=== PATIENT | male | born 1960 | race Caucasian/White ===

== ENCOUNTER 2016-06-22 08:55 | Outpatient (CLI) ==
[2016-06-22 09:56] LABS: ALBUMIN 3.9 g/dL (3.4-5.0); ALBUMIN/GLOBULIN RATIO 1.34; ANION GAP 12.1; BILIRUBIN,TOTAL 0.58 mg/dL (0.00-1.20); BUN/CREATININE RATIO 16.1; CALCIUM 9.7 mg/dL (8.2-10.2); CHOL/HDL RATIO 3.5 (4.5-6.4); CREATININE 1.18 mg/dL (0.60-1.10); POTASSIUM 4.1 mmol/L (3.5-5.1); TOTAL PROTEIN 6.8 g/dL (6.4-8.2)
== END 2016-06-22 08:56 | disposition home or self-care (01) ==
LOC: LAB 08:55
PROVIDERS: ATTEND Internal Medicine Endocrinology, Diabetes & Metabolism
DX: E10.9 Type 1 diabetes mellitus without complications (principal); R53.83 Other fatigue; G62.9 Polyneuropathy, unspecified
CPT/HCPCS: 36415; 80053; 80061; 82607; 83036; 84439; 84443

== ENCOUNTER 2016-07-25 06:53 | Inpatient (IN) ==
[~2016-07-25 06:53] MED LIST: ZITHROMAX 500 MG in SODIUM CHLORIDE 250 ML IV SCH
[2016-07-25] MEDS ORDERED: SODIUM CHLORIDE 1,000 ML IV STA (07:27)
[2016-07-25 07:43] LABS: BILIRUBIN,URINE Negative (NEGATIVE); KETONES,URINE Trace (NEGATIVE); LEUKOCYTE ESTERASE ,URINE Negative (NEGATIVE); NITRITE,URINE Negative (NEGATIVE); PH,URINE 5.5 (5-9); PROTEIN,URINE 2+ (NEGATIVE); URINE, BLOOD 2+ (NEGATIVE)
[2016-07-25 07:47] LABS: ADD URINE MICROSCOPIC YES
[2016-07-25 07:54] LABS: FLU INTERNAL QC INTERNAL QC VALID; RAPID FLU A NEGATIVE (NEGATIVE); RAPID FLU B NEGATIVE (NEGATIVE)
[2016-07-25 07:55] LABS: BASOPHILS # (AUTO) 0.1 K/uL (0-0.2); BASOPHILS % (AUTO) 0.2 % (0.0-3.0); HEMATOCRIT 44.1 % (42.0-52.0); HEMOGLOBIN 15.2 g/dl (14.0-18.0); IMMATURE GRANULOCYTE % (AUTO) 0.7 % (0.0-5.0); LYMPHOCYTES # (AUTO) 0.4 K/uL (0.60-3.4); MEAN CORPUSCULAR HEMOGLOBIN 30.8 pg (27.0-31.0); MEAN CORPUSCULAR HGB CONC 34.5 (31.8-35.4); MEAN CORPUSCULAR VOLUME 89.3 fl (80.0-94.0); MONOCYTES # (AUTO) 1.1 K/uL (0.4-2.0); MONOCYTES % (AUTO) 5.4 (0-10); NEUTROPHILS # (AUTO) 18.5 K/ul (2.0-6.9); NEUTROPHILS % (AUTO) 91.7; PLATELET COUNT 289 10^3/uL (140-440); RED BLOOD COUNT 4.94 10^6/ul (4.70-6.10); WHITE BLOOD COUNT 20.14 K/ul (4.2-10.2)
--- NOTE | 2016-07-25 08:25 | DI ---
Examination: Three radiographic images of the chest. Comparison: 07/05/2009. Reason for study: Cough. FINDINGS: The lungs are hyperexpanded. The cardiac silhouette is unchanged and within normal limit s of size. Chronic parenchymal changes are seen throughout the lung parenchyma. There is a develop ing air space opacity in the right lower lobe. No obvious pneumothorax. Impression: 1. Developing air space opacity/consolidation in the right lower lobe consistent with pneumonia. 2. Chronic obstructive pulmonary disease
[2016-07-25 08:32] LABS: ALANINE AMINOTRANSFERASE 15 U/L (12-78); ALBUMIN 3.1 g/dL (3.4-5.0); ALBUMIN/GLOBULIN RATIO 0.69; ALKALINE PHOSPHATASE 88 U/L (50-136); ANION GAP 16.8; ASPARTATE AMINO TRANSFERASE 14 U/L (15-37); BILIRUBIN,TOTAL 0.59 mg/dL (0.00-1.20); BLOOD UREA NITROGEN 15 mg/dL (7-18); BUN/CREATININE RATIO 11.45; CALCIUM 9.6 mg/dL (8.2-10.2); CARBON DIOXIDE 26 mmol/L (21-32); CHLORIDE 91 mmol/L (98-107); CREATINE KINASE 183 U/L; CREATININE 1.31 mg/dL (0.60-1.10); GLUCOSE 319 mg/dL (70-100); POTASSIUM 3.8 mmol/L (3.5-5.1); SODIUM 130 mmol/L (136-145); TOTAL PROTEIN 7.6 g/dL (6.4-8.2)
[2016-07-25] MEDS ORDERED: ROCEPHIN 1 GM in SODIUM CHLORIDE 50 ML IV STA (08:47)
[2016-07-25] MEDS ORDERED: ROCEPHIN ONE (08:50)
--- NOTE | 2016-07-25 11:22 | CT ---
EXAM: CT ABDOMEN AND PELVIS HISTORY: High white cell count, abdominal pain TECHNIQUE: CT abdomen and pelvis with intravenous contrast. Images were reconstructed using 5 mm se ction thickness. Reformations were prepared. 100 ml Visipaque 320 FINDINGS: No comparison CT. Paucity of intraperitoneal fat and patient motion limits the evaluation. No focal hepatic or spleni c lesions identified. Gallbladder grossly within normal limits. The pancreas is grossly within nor mal limits. No hydronephrosis. Anterior midpole left kidney demonstrates a 1 cm probable cyst. Ot herwise unremarkable enhancement of the renal parenchyma. The ureters are poorly seen. Normal abdo noam aorta. No gastric distension. What may represent a few portions of the appendix appear normal. Mild diffu se fluid distension of the small bowel. Urinary bladder is grossly unremarkable. Mildly prominent prostate size. There may be a scant amount of pelvic ascites. No abdominal wall hernia. Bones reveal degenerative disc and facet disease of the lumbosacral junct ion. Lung bases demonstrate a moderate amount of consolidation posteriorly on the right. No pneumo peritoneum. IMPRESSION: 1. Moderate right lung base pneumonia. 2. Mild fluid distension of most of the small bowel and possible scant pelvic ascites. Consider en teritis or ileus. 3. Mild prostate enlargement.
--- NOTE | 2016-07-25 12:02 | ED.PDOC ---
General ED Provider: Dr. SCOTT DODSON Chief Complaint: Fever Stated Complaint: fever Time Seen by Physician: 07:00 Mode of Arrival: Walk-In Information Source: Patient Exam Limitations: No limitations Nursing and Triage Documentation Reviewed and Agree: Yes Miscellaneous Complaint Exam - Febrile Illness/Adult Complaint/Exam Onset/Duration: 2 days Symptoms Are: Still present Timing: Constant Episodes Lasting: Hours Initial Severity: Moderate Current Severity: Moderate Associated Signs and Symptoms: Reports: Cough, Sore throat, Nausea, Chills, Myalgia Pseudomonas Risk Factors: Reports: None Serious Bacterial Infection Risk Factors: Reports: None Current Antibiotic Use: No Related Surgical History: None Differential Diagnoses: Bacteremia, GI Disease, Pneumonia Quality Indicator For Non-Traumatic Chest Pain/Syncope: EKG Performed Review of Systems - Review Of Systems Constitutional: Reports: Chills, Fever, Malaise Eyes: Reports: No symptoms Ears, Nose, Mouth, Throat: Reports: No symptoms Respiratory: Reports: Cough Cardiac: Reports: No symptoms GI: Reports: Abdominal pain : Reports: No symptoms Musculoskeletal: Reports: No symptoms Skin: Reports: No symptoms Neurological: Reports: No symptoms Endocrine: Reports: No symptoms Hematologic/Lymphatic: Reports: No symptoms All Other Systems: Reviewed and Negative Past Medical History - Past Medical History Previously Healthy: No Endocrine: Reports: DM 1 Cardiovascular: Reports: None Respiratory: Reports: COPD Hematological: Reports: None Gastrointestinal: Reports: None Genitourinary: Reports: None Neuro/Psych: Reports: None Musculoskeletal: Reports: None Cancer: Reports: None - Surgical History General Surgical History: Reports: None - Family History Family History: Reports: None - Social History Smoking Status: Current every day smoker, Heavy tobacco smoker Hx Substance Use: No Alcohol Screening: None Physical Exam - Physical Exam Appearance: Ill-appearing Eyes: BLAISE, EOMI, Conjunctiva clear ENT: Ears normal, Nose normal, Oropharynx normal Respiratory: Rhonchi Cardiovascular: RRR, Pulses normal, No rub, No murmur GI/: Soft, Nontender, No masses, Bowel sounds normal, No Organomegaly Musculoskeletal: Normal strength, ROM intact, No edema, No calf tenderness Skin: Warm, Dry, Normal color Neurological: Sensation intact, Motor intact, Reflexes intact, Cranial nerves intact, Alert, Oriented Psychiatric: Affect appropriate, Mood appropriate Interpretation - Radiology Interpretation Radiology Interpretation By: Radiologist Radiology Results: Positive (pneumonia) Physician Notification - Case Discussed Physician Notified: [email or web address] Time of Notification: 12:03 Admit To: Inpatient Critical Care Note - Critical Care Note Total Time (mins): 0 Course - Course Hematology/Chemistry: 07/25/16 07:45 07/25/16 07:45 Orders, Labs, Meds: Lab Review 07/25/16 07/25/16 07:15 07:45 WBC 20.14 H RBC 4.94 Hgb 15.2 Hct 44.1 MCV 89.3 MCH 30.8 MCHC 34.5 RDW Coeff of Kimber 12.2 Plt Count 289 Immature Gran % (Auto) 0.7 Neut % (Auto) 91.7 Lymph % (Auto) 2.0 L [place] % (Auto) 5.4 Eos % (Auto) 0.0 Baso % (Auto) 0.2 Immature Gran # (Auto) 0.1 Neut # 18.5 H Lymph # 0.4 L [place] # 1.1 Eos # 0.0 Baso # 0.1 Sodium 130 L Potassium 3.8 Chloride 91 L Carbon Dioxide 26 Anion Gap 16.8 BUN 15 Creatinine 1.31 H Estimated GFR (MDRD) 57.00 BUN/Creatinine Ratio 11.45 Glucose 319 H Lactic Acid 19.9 H Calcium 9.6 Total Bilirubin 0.59 AST 14 L ALT 15 Alkaline Phosphatase 88 Total Creatine Kinase 183 CK-MB (CK-2) 1.0 CK-MB (CK-2) % 0.26465 Troponin I < 0.0100 Total Protein 7.6 Albumin 3.1 L Globulin 4.5 Albumin/Globulin Ratio 0.69 Urine Color Yellow Urine Clarity Clear Urine pH 5.5 Ur Specific [place] 1.015 Urine Protein 2+ Urine Glucose (UA) 2+ Urine Ketones Trace Urine Blood 2+ Urine Nitrite Negative Urine Bilirubin Negative Urine Urobilinogen 1.0 Ur Leukocyte Esterase Negative Urine Microscopic RBC 0-2 Urine Microscopic WBC 0-2 Ur Squamous Epith Cells 0-2 Influenza A (Rapid) Negative Influenza B (Rapid) Negative Orders Category Date Time Status EKG-(ED ONLY) Stat CARDIO 07/25/16 08:47 Completed NPO REMINDER: IMAGING ONCE CARE 07/25/16 08:47 Completed ED IV/MEDIPORT/POWERPORT .ONCE EMERGENCY 07/25/16 07:26 Active BLOOD CULTURE Stat LAB 07/25/16 07:45 Received CBC W/ AUTO DIFF Stat LAB 07/25/16 07:45 Completed COMPREHENSIVE METABOLIC PANEL Stat LAB 07/25/16 07:45 Completed CREATINE KINASE Stat LAB 07/25/16 07:45 Completed LACTIC ACID Stat LAB 07/25/16 07:45 Completed MOLECULAR GROUP A STREP Stat LAB 07/25/16 07:15 Results RAPID FLU A/B Stat LAB 07/25/16 07:15 Completed STREP SCREEN Stat LAB 07/25/16 07:15 Results TROPONIN I Stat LAB 07/25/16 07:45 Completed URINALYSIS C & S IF INDICATED Stat LAB 07/25/16 07:15 Completed 0.9 % Sodium Chloride [Saline Flush] MEDS 07/25/16 07:26 Active 1 syr IVF PRN PRN Ceftriaxone Sodium [Rocephin] MEDS 07/25/16 08:50 Discontinued 1 gm .ROUTE .STK-MED ONE Ceftriaxone Sodium [Rocephin] 1 gm MEDS 07/25/16 08:47 Discontinued 0.9 % Sodium Chloride [Sodium Chloride] 50 ml IV ONCE Sodium Chloride 0.9% [Sodium Chloride] 1,000 ml MEDS 07/25/16 07:27 Discontinued IV BOLUS CHEST, 2 VIEWS PA & LAT Stat RADS 07/25/16 07:[address] ABDOMEN/PELVIS W CONTRAST Stat RADS 07/25/16 08:46 Completed Medications Generic Name Dose Route Start Last Admin Trade Name Freq PRN Reason Stop Dose Admin Sodium Chloride 1 syr 07/25/16 07:26 07/25/16 07:44 Saline Flush IVF 1 syr PRN PRN Administration To flush IV Discontinued Medications Generic Name Dose Route Start Last Admin Trade Name Freq PRN Reason Stop Dose Admin Sodium Chloride 1,000 mls @ 1,000 mls/hr 07/25/16 07:27 07/25/16 07:44 Sodium Chloride IV 07/25/16 08:26 1,000 mls/hr BOLUS STA Administration Ceftriaxone Sodium 1 gm/ 50 mls @ 75 mls/hr 07/25/16 08:47 07/25/16 09:02 Sodium Chloride IV 07/25/16 09:26 75 mls/hr ONCE STA Administration Vital Signs: Temp Pulse Resp BP Pulse Ox 07/25/16 06:53 103.2 F H 101 H 20 141/76 H 93 L Departure - Departure Time of Disposition: 12:04 Disposition: ADMITTED INPATIENT Discharge Problem: Fever Pneumonia Qualifiers: Pneumonia type: due to unspecified organism Instructions: Bacterial Pneumonia (ED) Condition: Good Pt referred to PMD for follow-up: No Additional Instructions: Please call your Family Physician as soon as possible to schedule a follow-up appointment. Allergies/Adverse Reactions: Allergies ciprofloxacin [From Cipro] Adverse Reaction (Verified 07/25/16 07:03) Home Medications: Ambulatory Orders Albuterol Sulfate [Ventolin Hfa] 2 puff IH BID 07/25/16 Aspirin [Aspir-Low] 81 mg PO DAILY 07/25/16 Cyanocobalamin/Folic Acid [Vitamin M78-Gpsqf Acid Tablet] 1 each PO DAILY Gabapentin 300 mg PO TID 07/25/16 Guaifenesin [Mucinex] 600 mg PO DIRECTED PRN 07/25/16 Insulin Glargine,Hum.rec.anlog [Janie Santana] 1 unit SQ DIRECTED PRN 07/25 Insulin Lispro [Humalog Kwikpen] 34 unit SQ DAILY 07/25/16 Disposition Discussed With: Patient, Family
[2016-07-25 13:02] VITALS: BMI 21.1
[2016-07-25] MEDS ORDERED: SOLU-MEDROL 40 MG IVP STA (13:53)
[2016-07-25] MEDS: SODIUM CHLORIDE 1,000 ML IV SCH (14:00)
[2016-07-25] MEDS: NEURONTIN PO SCH ×2 (14:52→21:33)
[2016-07-25] MEDS: ZITHROMAX 500 MG in SODIUM CHLORIDE 250 ML IV SCH (15:19)
[2016-07-25] MEDS: DUONEB NEB SCH ×2 (17:13→22:49)
[2016-07-25 19:21] LABS: TROPONIN I 0.026 ng/ml (0.0000-0.4000)
[2016-07-25 19:22] LABS: CREATINE KINASE MB 0.9 ng/ml (0.0-3.6)
[2016-07-25] MEDS: HUMULIN R SUBCUT SCH (21:33)
[2016-07-25] MEDS: SOLU-MEDROL 40 MG IVP SCH (22:17)
[2016-07-26 02:18] LABS: BASOPHILS % (AUTO) 0.2 % (0.0-3.0); HEMOGLOBIN 12.5 g/dl (14.0-18.0); IMMATURE GRANULOCYTE % (AUTO) 0.9 % (0.0-5.0); LYMPHOCYTES # (AUTO) 0.4 K/uL (0.60-3.4); LYMPHOCYTES % (AUTO) 2.1 (10.0-50.0); MEAN CORPUSCULAR HEMOGLOBIN 30.9 pg (27.0-31.0); MEAN CORPUSCULAR HGB CONC 34.7 (31.8-35.4); MEAN CORPUSCULAR VOLUME 88.9 fl (80.0-94.0); MONOCYTES # (AUTO) 0.4 K/uL (0.4-2.0); MONOCYTES % (AUTO) 2.5 (0-10); NEUTROPHILS # (AUTO) 16.5 K/ul (2.0-6.9); NEUTROPHILS % (AUTO) 94.3; PLATELET COUNT 279 10^3/uL (140-440); RED BLOOD COUNT 4.05 10^6/ul (4.70-6.10); WHITE BLOOD COUNT 17.48 K/ul (4.2-10.2)
[2016-07-26 02:40] LABS: ALBUMIN 2.2 g/dL (3.4-5.0); ALBUMIN/GLOBULIN RATIO 0.67; ANION GAP 13.7; BILIRUBIN,TOTAL 0.35 mg/dL (0.00-1.20); BUN/CREATININE RATIO 16.5; CALCIUM 8.1 mg/dL (8.2-10.2); CREATININE 1.03 mg/dL (0.60-1.10); POTASSIUM 3.7 mmol/L (3.5-5.1); TOTAL PROTEIN 5.5 g/dL (6.4-8.2)
[2016-07-26 02:57] LABS: TROPONIN I 0.038 ng/ml (0.0000-0.4000)
[2016-07-26 02:58] LABS: CREATINE KINASE MB 0.9 ng/ml (0.0-3.6)
[2016-07-26] MEDS: SODIUM CHLORIDE 1,000 ML IV SCH ×3 (04:55→21:33)
[2016-07-26] MEDS: DUONEB NEB SCH ×4 (04:55→23:30)
[2016-07-26] MEDS: HUMULIN R SUBCUT SCH (05:24)
[2016-07-26] MEDS: SOLU-MEDROL 40 MG IVP SCH ×3 (05:42→20:30)
--- NOTE | 2016-07-26 07:19 | CT ---
EXAM: CT THORAX HISTORY: Shortness of breath, history of pneumothorax. TECHNIQUE: CT thorax with intravenous contrast. 5-mm axial sections. Coronal and sagittal re-forma tions. 75 ml Omnipaque COMPARISON: No comparison chest CT. Normal heart size. Thoracic aorta within normal limits. There are several prominent mediastinal an d hilar lymph nodes, many which are calcified. Lungs reveal severe emphysema including large apical bullae and moderate scattered fibrosis. Superi mposed moderate airspace consolidations in the right lower lobe posteriorly. There is a 0.79 cm stel late nodular opacity in the upper left lung with associated linear scarring. A similar stellate opa city is noted in the right upper lobe although slightly larger at 1.3 cm. These are likely fibrotic although neoplastic etiology cannot completely be excluded. Follow-up CT is recommended. Trace ri ght pleural effusion. No pneumothorax. The bones reveal no acute abnormality. Mild thoracic scoliosis. Incidental note of a few small gall stones. IMPRESSION: 1. Moderate right lung base pneumonia. 2. Severe emphysema with large biapical bullae and scattered fibrosis. 3. Indeterminate stellate nodular opacities in the upper lung zones as described, follow-up CT is r ecommended. 4. Prominent mediastinal lymph nodes may be related to previous granulomatous disease/reactive post inflammatory. Malignant nature, less likely although not excluded.
[2016-07-26] MEDS: ASPIRIN EC PO SCH (08:31)
[2016-07-26] MEDS: ROCEPHIN 1 GM in SODIUM CHLORIDE 100 ML IV SCH (08:31)
[2016-07-26] MEDS: NEURONTIN PO SCH ×3 (08:31→20:48)
[2016-07-26] MEDS: ZITHROMAX 500 MG in SODIUM CHLORIDE 250 ML IV SCH (09:44)
[2016-07-26] MEDS ORDERED: HUMULIN R SUBCUT STA (11:24)
[2016-07-26 12:17] LABS: HEMATOCRIT 34.1 % (42.0-52.0); HEMOGLOBIN 12.2 g/dl (14.0-18.0)
[2016-07-26] MEDS ORDERED: HUMULIN R SUBCUT ONE ×2 (12:30→12:58)
[2016-07-26] MEDS: HUMULIN R SUBCUT PRN ×2 (16:58→20:47)
[2016-07-27] MEDS: DUONEB NEB SCH ×4 (04:53→23:10)
[2016-07-27] MEDS: SOLU-MEDROL 40 MG IVP SCH ×3 (05:40→20:19)
[2016-07-27 06:03] LABS: BASOPHILS % (AUTO) 0.1 % (0.0-3.0); HEMATOCRIT 32.9 % (42.0-52.0); HEMOGLOBIN 11.6 g/dl (14.0-18.0); IMMATURE GRANULOCYTE % (AUTO) 0.4 % (0.0-5.0); LYMPHOCYTES # (AUTO) 0.5 K/uL (0.60-3.4); LYMPHOCYTES % (AUTO) 3.1 (10.0-50.0); MEAN CORPUSCULAR HEMOGLOBIN 30.9 pg (27.0-31.0); MEAN CORPUSCULAR HGB CONC 35.3 (31.8-35.4); MEAN CORPUSCULAR VOLUME 87.5 fl (80.0-94.0); MONOCYTES # (AUTO) 0.6 K/uL (0.4-2.0); MONOCYTES % (AUTO) 3.4 (0-10); NEUTROPHILS # (AUTO) 15.8 K/ul (2.0-6.9); PLATELET COUNT 313 10^3/uL (140-440); RED BLOOD COUNT 3.76 10^6/ul (4.70-6.10); WHITE BLOOD COUNT 16.94 K/ul (4.2-10.2)
[2016-07-27 06:27] LABS: ALBUMIN 2.1 g/dL (3.4-5.0); ALBUMIN/GLOBULIN RATIO 0.68; ANION GAP 11.1; BILIRUBIN,TOTAL 0.25 mg/dL (0.00-1.20); BUN/CREATININE RATIO 23.07; CALCIUM 8.2 mg/dL (8.2-10.2); CREATININE 0.91 mg/dL (0.60-1.10); POTASSIUM 4.1 mmol/L (3.5-5.1); TOTAL PROTEIN 5.2 g/dL (6.4-8.2)
[2016-07-27] MEDS: HUMULIN R SUBCUT PRN ×4 (06:42→20:37)
[2016-07-27] MEDS: ASPIRIN EC PO SCH (08:50)
[2016-07-27] MEDS: NEURONTIN PO SCH ×3 (09:18→20:18)
[2016-07-27] MEDS: INSULIN GLARGINE HUM REC ANLOG 34 UNIT SUBCUT SCH (09:19)
[2016-07-27] MEDS: ROCEPHIN 1 GM in SODIUM CHLORIDE 100 ML IV SCH (09:20)
--- NOTE | 2016-07-27 10:27 | HP ---
DATE OF SERVICE: 07/25/16 REASON FOR HOSPITALIZATION: Fever HISTORY OF PRESENT ILLNESS: The patient is a 56 year old male who is very active with a history of diabetes , coughing, congestion and getting yellow green phlegm for 3-4 days and a fever of 101 and 102. He has been taking over the counter medication and not helping so came to the emergency room today and seen by Dr. Shea. Temperature in the emergency room was 103.2. Saturation was 93% on the room air. Chest x-ray showed the right lower lobe pneumonia. Co-worker been diagnosed with the flu. WBC was 20.14, lactic acid is 19.3, glucose 319. In review of right lower lobe pneumonia, community acquired and fever of 103 the patient is admitted to the hospital for IV antibiotics and rehydration. REVIEW OF SYSTEMS: CONSTITUTIONAL: No night sweats. Weakness and tiredness. Fever. HEENT: Eyes: No visual changes. No eye pain. No eye discharge. ENT: No runny nose. No epistaxis. No sinus pain. No sore throat. No odynophagia. No ear pain. No congestion. RESPIRATORY: Coughing, congestion. No hemoptysis. CARDIOVASCULAR: No angina symptoms. No CHF symptoms. No atypical chest pain for CAD. No palpitations. Shortness of breath. GASTROINTESTINAL: No abdominal pain. No nausea or vomiting. No diarrhea or constipation. No hematemesis. No hematochezia. GENITOURINARY: No urgency. No frequency. No dysuria. No hematuria. No obstructive symptoms. No discharge. No pain. No significant abnormal bleeding. MUSCULOSKELETAL: No musculoskeletal pain. No joint swelling. No arthritis. NEUROLOGICAL: No headache. No neck pain. No syncope. No seizures. No dizziness. PSYCHIATRIC: Not anxious. No depression. No suicidal thoughts. No homicidal thoughts. SKIN: No rash. No lesions. No wounds. ENDOCRINE: No unexplained weight loss. No weight gain. Elevated sugars. HEMATOLOGIC/LYMPHATIC: No anemia. No purpura. No petechiae. No prolonged or excessive bleeding. No palpable lymph nodes. PERSONAL/FAMILY/SOCIAL HISTORY: The patient does smoke. No alcohol and no drug use. 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 Family history is significant for the thyroid and cardiac problems. PAST MEDICAL/SURGICAL PROBLEMS: Diabetes COPD Depression Anxiety History of pneumothorax X2 Hernia repair on the left side MEDICATIONS: DUO NEB Insulin Neurontin Mucinex Ventolin Humalog Vitamin B12 [place] ALLERGIES: Ciprofloxacin PHYSICAL EXAMINATION: VITAL SIGNS: Blood pressure 140/76, respiratory rate 20, heart rate 101, temperature 103.2 and pulse ox 93%. HEENT: Head normocephalic, atraumatic. Eyes: Extraocular muscles are intact. Pupils are equal, round and reactive to light and accommodation. Ears: No lesions. Nose appeared normal. Throat: No exudate or erythema. Mucosa dry. NECK: Supple. No JVD, no carotid bruit. No lymphadenopathy or thyromegaly. LUNGS:Decreased and basilar crackles right more than the left. Percussion note normal. Chest symmetrical. HEART: S1, S2, no S3. No murmurs. No cyanosis or clubbing. No ascites. Pulses: Dorsalis pedis and posterior tibial pulses +1 to +2 both sides. ABDOMEN: Soft. Nontender. Bowel sounds sluggish. No CVA tenderness. No mass felt. EXTREMITIES: No edema. Full range of motion of all extremities, equal. NEUROLOGIC: No focal deficit. Cranial nerves II through XII are grossly intact. No headache, no double vision or headache. SKIN: Dry. Intact. Turgor - normal. No open areas. LYMPHATIC: No palpable lymph nodes/no lymphedema. MUSCULOSKELETAL: Normal joints with no swelling. Muscle tone is normal. LABS: WBC 20.14, hgb 15.2, hct 44.1, plt count 289, sodium 130, potassium 3.8, chloride 99. bicarb 26, BUN 15, creatinine 1.31, glucose 319 and lactic acid 19.9. Urine 2+ protein, 2+ glucose and blood 2+. Influenza negative. CT of abdomen and pelvis showed the right lower lobe pneumonia. ASSESSMENT: 1. Community acquired pneumonia, right lower lobe 2. Uncontrolled diabetes mellitus 3. COPD 4. Nicotine use 5. Hypertension 6. Peripheral neuropathy PLAN: 1. Admit patient to the regular floor 2. CBC and CMP today and daily 3. Cardiac enzymes and Troponin 4. IV fluids 75ml per hour 5. Rocephin 1 gram daily 6. Accu-checks with the coverage 7. DUO NEBS 8. Solu-Medrol 40 Q 8 hours 9. Tylenol for the fever Will follow the patient in daily rounds. TIME SPENT: More than 60 minutes. MTDD
[2016-07-27] MEDS: ZITHROMAX 500 MG in SODIUM CHLORIDE 250 ML IV SCH (10:35)
[2016-07-27] MEDS: SODIUM CHLORIDE 1,000 ML IV SCH (11:19)
[2016-07-27 12:24] LABS: HEMATOCRIT 34.5 % (42.0-52.0); HEMOGLOBIN 12.1 g/dl (14.0-18.0)
--- NOTE | 2016-07-27 13:15 | PN ---
DATE OF SERVICE: 07/27/16 SUBJECTIVE: The patient is complaining about coughing and getting drops of blood. His hgb dropped from 15.2 to 11.6 today. Otherwise PND or Orthopnea. REVIEW OF SYSTEMS: CONSTITUTIONAL: No fever, no chills. HEENT: Normal. ENDOCRINE: No weight gain, no weight loss. CVS: No angina symptoms. No CHF symptoms. No palpitations. No atypical chest pain for CAD. No shortness of breath. No PND, no orthopnea. RESPIRATORY: Still coughing has a lot of yellow/green phlegm. No hemoptysis. GI: No nausea, no vomiting. No abdominal pain. : No hematuria. No polyuria. MUSCULOSKELETAL:. No joint swelling. PSYCHIATRIC: Not anxious. No depression. No suicidal thoughts. No homicidal thoughts. SKIN: Intact. No rash. PHYSICAL EXAMINATION: V/S: Blood pressure 111/64, respiratory rate 16, heart rate 70, temperature 96.9 and saturation is 90. HEENT: Normocephalic, atraumatic. Ears, eyes, nose and throat normal. Mucosa dry. Pallor positive. NECK: Supple. No JVD, no carotid bruit. No lymphadenopathy. LUNGS: Decreased and basilar crackles. No rales or rhonchi. HEART: S1, S2 normal. No S3. No murmur, gallop or regurgitation. ABDOMEN: Soft, nontender. Bowel sounds active. No rigidity. No rebound or guarding. No CVA tenderness. EXTREMITIES: No clubbing, cyanosis or pedal edema. MUSCULOSKELETAL: No joint swelling. NEUROLOGIC: Awake, alert, oriented times three. No focal deficit. LYMPHATIC: No lymph nodes palpable. SKIN: Intact. LABS: WBC 16.49, hgb 11.6, hct 32.9, plt count 313, d-dimer 1.17, sodium 128, potassium 4.1, chloride 99, bibcarb 22, BUN 21 and creatinine 0.91. ASSESSMENT: 1. Hemoptysis 2. COPD exacerbation secondary to the pneumonia right lower lobe 3. Anemia 4. Depression 5. Anxiety 6. Diabetes Mellitus PLAN: 1. Continue Rocephin 2. Insulin 3. DUO NEBS 4. Solu-Medrol 40 Q 8 hour 5. IV fluids 6. Will give Tessalon Perles 200 three times a day 7. Out of bed to chair activity as tolerated Will follow the patient in daily rounds. TIME SPENT: More than 30 minutes MTDD
--- NOTE | 2016-07-27 14:13 | PN ---
DATE OF SERVICE: 07/26/16 SUBJECTIVE: The patient was admitted with the pneumonia right lower lobe, community acquired. The patient had fever 101,100.8 and 100.6 all night. The last one was 97 as of now resting in the bed and not in any distress. REVIEW OF SYSTEMS: CONSTITUTIONAL: No fever, no chills. HEENT: Normal. ENDOCRINE: No weight gain, no weight loss. CVS: No angina symptoms. No CHF symptoms. No palpitations. No atypical chest pain for CAD. No shortness of breath. No PND, no orthopnea. RESPIRATORY: Cough and congestion and getting lots of phlegm. No hemoptysis. GI: No nausea, no vomiting. No abdominal pain. : No hematuria. No polyuria. MUSCULOSKELETAL:. No joint swelling. PSYCHIATRIC: Not anxious. No depression. No suicidal thoughts. No homicidal thoughts. SKIN: Intact. No rash. PHYSICAL EXAMINATION: V/S: Blood pressure 103/78, respiratory rate 18, 16, heart 84 and temperature 98.1. HEENT: Normocephalic, atraumatic. Ears, eyes, nose and throat normal. Mucosa dry. Pallor positive. No icterus. NECK: Supple. No JVD, no carotid bruit. No lymphadenopathy. LUNGS: Decreased and basilar crackles right more than the left. No rales or rhonchi. HEART: S1, S2 normal. No S3. No murmur, gallop or regurgitation. ABDOMEN: Soft, nontender. Bowel sounds active. No rigidity. No rebound or guarding. No CVA tenderness. EXTREMITIES: No clubbing, cyanosis or pedal edema. MUSCULOSKELETAL: No joint swelling. NEUROLOGIC: Awake, alert, oriented times three. No focal deficit. LYMPHATIC: No lymph nodes palpable. SKIN: Intact. LABS: WBC 17.48, hgb 12.5, hct 36.0, plt count 279, sodium 129, potassium 3.7, chloride 97, bicarb 22, BUN 17 and creatinine 1.03 ASSESSMENT: 1. COPD exacerbation secondary to the right lower lobe pneumonia 2. Persistent fever secondary to the pneumonia, rule out other systemic infections 3. History of Hypothyroidism 4. Depression 5. Diabetes PLAN: 1. Continue the Rocephin 2. Azithromycin 3. CT of the chest, results to be followed 4. Continue IV fluids 5. Tylenol 6. Follow up with the followup with the blood cultures Will follow the patient in daily rounds. TIME SPENT: More than 30 minutes MTDD
[2016-07-27] MEDS: TESSALON PERLES PO SCH ×2 (14:58→20:18)
--- NOTE | 2016-07-27 16:02 | DI ---
EXAM: Two views of the chest. History: Follow-up pneumonia Comparison: Chest radiograph 07/25/2016, chest CT 07/26/2016 Findings: Severe emphysema with bullous changes in the lung apices. Heart size is normal. No signi ficant interval change in the right lower lobe consolidation and small right pleural effusion. No v isible pneumothorax. No acute osseous abnormalities. Impression: 1. No significant interval change in the right lower lobe pneumonia. Continued follow-up recommende d 2. Severe emphysema.
[2016-07-28] MEDS: SODIUM CHLORIDE 1,000 ML IV SCH (02:04)
[2016-07-28 02:43] VITALS: TEMP 97.6
[2016-07-28] MEDS: SOLU-MEDROL 40 MG IVP SCH (04:57)
[2016-07-28] MEDS: DUONEB NEB SCH ×2 (05:05→11:04)
[2016-07-28 05:46] LABS: BASOPHILS % (AUTO) 0.1 % (0.0-3.0); HEMATOCRIT 34.5 % (42.0-52.0); HEMOGLOBIN 12.1 g/dl (14.0-18.0); IMMATURE GRANULOCYTE % (AUTO) 0.8 % (0.0-5.0); LYMPHOCYTES # (AUTO) 0.6 K/uL (0.60-3.4); LYMPHOCYTES % (AUTO) 4.4 (10.0-50.0); MEAN CORPUSCULAR HEMOGLOBIN 30.7 pg (27.0-31.0); MEAN CORPUSCULAR HGB CONC 35.1 (31.8-35.4); MEAN CORPUSCULAR VOLUME 87.6 fl (80.0-94.0); MONOCYTES # (AUTO) 0.5 K/uL (0.4-2.0); MONOCYTES % (AUTO) 3.6 (0-10); NEUTROPHILS # (AUTO) 12.9 K/ul (2.0-6.9); NEUTROPHILS % (AUTO) 91.1; PLATELET COUNT 356 10^3/uL (140-440); RED BLOOD COUNT 3.94 10^6/ul (4.70-6.10); WHITE BLOOD COUNT 14.16 K/ul (4.2-10.2)
[2016-07-28 06:11] LABS: ALBUMIN 2.2 g/dL (3.4-5.0); ALBUMIN/GLOBULIN RATIO 0.73; ANION GAP 11.1; BILIRUBIN,TOTAL 0.34 mg/dL (0.00-1.20); BUN/CREATININE RATIO 22.61; CALCIUM 8.3 mg/dL (8.2-10.2); CREATININE 0.84 mg/dL (0.60-1.10); POTASSIUM 4.1 mmol/L (3.5-5.1); TOTAL PROTEIN 5.2 g/dL (6.4-8.2)
[2016-07-28] MEDS: HUMULIN R SUBCUT PRN (06:18)
[2016-07-28] MEDS: ROCEPHIN 1 GM in SODIUM CHLORIDE 100 ML IV SCH (08:24)
[2016-07-28] MEDS: TESSALON PERLES PO SCH (08:24)
[2016-07-28] MEDS: ASPIRIN EC PO SCH (08:24)
[2016-07-28] MEDS: NEURONTIN PO SCH (08:24)
[2016-07-28] MEDS: INSULIN GLARGINE HUM REC ANLOG 34 UNIT SUBCUT SCH (08:25)
--- NOTE | 2016-07-28 10:44 | CM.DICTOOL ---
ADMISSION: 07/25/16 12:17 DISCHARGE: 07/28/16 DATE OF SERVICE: 07/28/16 FINAL DIAGNOSIS PNEUMONIA, RIGHT LOWER LOBE DM, INSULIN DEPENDENT (SEES DR. HOOD) COPD SEVERE EMPHYSEMA INGUINAL HERNIA DIABETIC NEUROPATHY PNEUMOTHORAX BY HISTORY HEAVY SMOKER LAST VITALS Temp Pulse Resp BP Pulse Ox 97.6 F 69 21 111/66 93 L 07/28/16 05:48 07/28/16 05:48 07/28/16 05:48 07/28/16 05:48 07/28/16 05:48 ACTIVE MEDICATIONS Albuterol Sulfate (Ventolin Hfa) 2 PUFFS IH BID [facility] Last Admin: 07/28/16 05:05 Dose: 1 vial Aspirin (Aspirin Ec) 81 mg PO DAILYWM [facility] Last Admin: 07/28/16 08:24 Dose: 81 mg Cyanocobalamin/Folic Acid (Vitamin H97-Mhtod Acid) 1 tab PO DAILY Gabapentin (Neurontin) 300 mg PO TID [facility] Last Admin: 07/28/16 08:24 Dose: 300 mg Sodium Chloride (Sodium Chloride) 1,000 mls @ 75 mls/hr IV .[id number] [facility] Last Admin: 07/28/16 02:04 Dose: 75 mls/hr Insulin Lispro (Humalog Kwikpen) 1 unit SQ as directed per sliding scale DAILY Insulin Glargine,Hum.Rec.Anlog [Janie Santana] 34 units SUBCUT DAILY [facility] Last Admin: 07/28/16 08:25 Dose: 34 units ALLERGIES ciprofloxacin [From Cipro] Adverse Reaction (Verified 07/25/16 07:03) NEW PRESCRIPTIONS: MEDROL DOSEPAK, TAKE DIRECTED WITH FOOD KEFLEX 500 MG, TAKE ONE TABLET BY MOUTH EVERY 12 HOURS FOR 7 (SEVEN) DAYS SMOKING: SMOKING CESSATION RISK FACTORS AND BENEFITS OF COMPLETE CESSATION THE PATIENT IS AGREEABLE TO CONTINUE WITH COMPLETE CESSATION. DISEASE SPECIFIC EDUCATION: PNEUMONIA EMPHYSEMA HOME MEDICATIONS NEW PRESCRIPTIONS FOLLOW UP SMOKING CESSATION LAB REVIEW: 07/28/16 05:30 07/28/16 05:30 07/28/16 05:30: WBC 14.16 H, RBC 3.94 L, Hgb 12.1 L, Hct 34.5 L, MCV 87.6, MCH 30.7, MCHC 35.1, RDW Coeff of Kimber 12.9, Plt Count 356, Immature Gran % (Auto) 0.8, Neut % (Auto) 91.1, Lymph % (Auto) 4.4 L, [place] % (Auto) 3.6, Eos % (Auto) 0.0, Baso % (Auto) 0.1, Immature Gran # (Auto) 0.1, Neut # 12.9 H, Lymph # 0.6, [place] # 0.5, Eos # 0.0, Baso # 0.0, Sodium 134 L, Potassium 4.1, Chloride 103, Carbon Dioxide 24, Anion Gap 11.1, BUN 19 H, Creatinine 0.84, Estimated GFR ( MDRD) 95.00, BUN/Creatinine Ratio 22.61, Glucose 266 H D, Calcium 8.3, Total Bilirubin 0.34, AST 26, ALT 28, Alkaline Phosphatase 68, Total Protein 5.2 L, Albumin 2.2 L, Globulin 3.0, Albumin/Globulin Ratio 0.73 07/27/16 12:00: Hgb 12.1 L, Hct 34.5 L PLAN: DISCHARGE HOME TODAY RETURN TO [facility] TO SEE DR. SANTO ON 08/09/16 AT 11 A.M. RESUME YOUR HOME MEDICATIONS PER LIST PROVIDED BY THE NURSING STAFF NEW PRESCRIPTIONS: MEDROL DOSEPAK, TAKE DIRECTED WITH FOOD KEFLEX 500 MG, TAKE ONE TABLET BY MOUTH EVERY 12 HOURS FOR 7 (SEVEN) DAYS ACTIVITY: GET PLENTY OF REST AT HOME. GRADUALLY INCREASE YOUR ACTIVITY LEVEL ACCORDING TO YOUR TOLERATION STOP SMOKING YOU MAY RETURN TO WORK ON 07/31/16 DIET: DIABETIC, HEALTH HEART SUMMARY: THE PATIENT IS ALERT AND ORIENTED X3. CURRENTLY HE RESIDES AT HOME ALONE. HE IS INDEPENDENT WITH ADL'S AND HAS NO HOME HEALTH OR HOMEMAKING SERVICES. HE HAS A PORTABLE PULSE OXIMETRY METER AT HOME. MR. FAGAN DESIRES TO RETURN TO HIS HOME AT DISCHARGE. THE SKIN TURGOR IS INTACT AND WITHOUT DECUBITUS ULCERS. HYDRATION STATUS IS IMPROVED FROM ADMISSION. THE PATIENT IS AFEBRILE AND AGREEABLE FOR DISCHARGE HOME TODAY. VANDA SANTO M.D.
[2016-07-28 10:56] VITALS: BP 113/68
--- NOTE | 2016-08-25 15:31 | DS ---
DATE OF SERVICE: 07/28/16 FINAL DIAGNOSIS: 1. Pneumonia, right lower lobe 2. Diabetes Mellitus, insulin dependant (sees Dr. Singh) 3. COPD 4. Severe Emphysema 5. Inguinal Hernia 6. Diabetic Neuropathy 7. Pneumothorax by history 8. Heavy Smoker LAST VITALS: Temperature 97.6, pulse 69, respiratory rate 21, blood pressure 111/66 and pulse ox 93%. DISCHARGE INSTRUCTIONS: Discharge home today. Return to [facility] to see Dr. John on 08/09 at 11am. Resume home medications as per list provided by the nursing staff. May return to work 07/31/16. MEDICATIONS AT DISCHARGE: Ventolin hfa 2 puffs IH twice a day Aspirin 81mg PO daily Vitamin K20-Wpouc acid PO daily Neurontin 300mg PO three times a day Sodium Chloride 1,000mls at 75mls IV Q 13 hours Humalog Kwikpen 1 unit SQ as directed per sliding scale daily ALLERGIES: Ciprofloxacin NEW PRESCRIPTIONS: Medrol Dosepak, take as directed with food Keflex 500mg , take one tablet by mouth every 12 hours for 7 days. DIET INSTRUCTIONS: Diabetic, Healthy heart. ACTIVITY: Get plenty of rest at home. Gradually increase activity level according to toleration. SMOKING: Smoking cessation Risk factors and benefits to continue with complete cessation. The patient is agreeable to continue with complete Cessation. DISEASE SPECIFIC EDUCATION: Pneumonia Emphysema Home medications New prescriptions Followup Smoking cessation HOSPITAL COURSE: Zuhair Ryan who is a 56 year old male with a history of COPD, pneumothorax came to the emergency room with the cough and shortness of breath and found to have pneumonia right lower lobe and temperature was 103.2. Flu is negative and D-dimer 1.17, WBC was 20 and the patient did have some epigastric pain in the right upper quadrant pain so at that time it showed the moderate right lung base pneumonia, right fluid distention of most of the small bowel, possible scant pelvic ascites. Consider enteritis or ileus and mild prostate enlargement. We did do the CT chest after the admission to the hospital and started on the IV antibiotics and breathing treatments. Mild lung base pneumonia was seen and severe emphysema with large biapical bullae, prominent mediastinal lymph nodes were seen. The patient was continued on the Rocephin and the Azithromycin. Solu-Medrol Q 8 hours was given. DUO NEBS was given, Accu- checks covered the regular insulin. Tessalon Perles were given gradually started feeling better and his hgb was 12.5 and 12.2 and 12.1. BUN and creatinine was stable. Sugars were elevated because of the steroids. As patient was up and about fever free the patient was discharged home and advised strictly to quit smoking, offered help but the patient promised that when he goes home he will try by himself. The patient was sent on antibiotics Keflex and Medrol Dose-Chris. Advised to take the probiotics. Outpatient pulmonary function test been scheduled. TIME SPENT: More than 55 minutes today. HEENAD
== END 2016-07-28 11:30 | disposition home or self-care (01) | DRG 194 ==
LOC: ED 06:53 → MEDSURG B 12:17
PROVIDERS: ADMIT Emergency Medicine; ATTEND Emergency Medicine
DX: J18.9 Pneumonia, unspecified organism (principal); R04.2 Hemoptysis; E11.40 Type 2 diabetes mellitus with diabetic neuropathy, unspecified; J43.8 Other emphysema; R06.02 Shortness of breath; K40.90 Unilateral inguinal hernia, without obstruction or gangrene, not specified as recurrent; R10.13 Epigastric pain; K52.9 Noninfective gastroenteritis and colitis, unspecified; N40.0 Benign prostatic hyperplasia without lower urinary tract symptoms; E03.9 Hypothyroidism, unspecified; F41.8 Other specified anxiety disorders; F17.200 Nicotine dependence, unspecified, uncomplicated; Z87.09 Personal history of other diseases of the respiratory system; Z79.4 Long term (current) use of insulin
CPT/HCPCS: 36415; 80053; 81001; 82550; 82553; 82962; 83605; 83880; 84484; 85014; 85018; 85025; 85379; 87040; 87070; 87651; 87804; 87880; 93005; 93010; 94640; 96361; 96365; 99223; 99233; 99239; 99284

== ENCOUNTER 2016-08-11 08:40 | Outpatient (CLI) ==
[2016-08-11] MEDS ORDERED: ALBUTEROL 0.083% NEB NEB STA (09:05)
== END 2016-08-11 08:41 | disposition home or self-care (01) ==
LOC: CAR 08:40
PROVIDERS: ATTEND Emergency Medicine
DX: J43.1 Panlobular emphysema (principal)
CPT/HCPCS: 94640

== ENCOUNTER 2017-05-18 13:40 | Outpatient (CLI) | END 2017-05-18 13:41 | disposition home or self-care (01) | LOC: LAB 13:40 | PROVIDERS: ATTEND Internal Medicine Endocrinology, Diabetes & Metabolism | DX: E78.5 Hyperlipidemia, unspecified (principal); E10.9 Type 1 diabetes mellitus without complications | CPT/HCPCS: 36415; 80053; 83036; 84439; 84443 ==